=== PATIENT | female | born 1965 | race African-American/Black ===

== ENCOUNTER 2016-05-25 23:21 | Emergency (ER) | payer OTHER ==
[~2016-05-25] VITALS: Ht 165.1 cm; Wt 53.2 kg
[~2016-05-25 23:21] MED LIST: PROTONIX40 MG PO; SORE THROAT SP177 M1 MM; ZOFRAN4 MG PO
[2016-05-26 00:47] LABS: HEMATOCRIT 31.6 % (36.0-46.0); MCH 30.3 PG (29.0-34.0); MCHC 34.2 G/DL (30.0-36.0); MCV 88.5 FL (83-99); MEAN PLAT.VOLUME 9.6 uM^3 (9.5-12.4); PLATELET COUNT 228 K/uL (156-360); RBC DIS.WIDTH-CV 14.7 % (11.8-14.6); RBC DIS.WIDTH-SD 47.4 % (39-53); RED BLOOD COUNT 3.57 M/uL (3.80-5.20); WHITE BLOOD COUNT 4.3 K/uL (4.1-10.2)
[2016-05-26 00:55] LABS: CHLORIDE 109 mEq/L (99-109); POTASSIUM 3.2 mEq/L (3.7-5.4); SODIUM 145 mEq/L (136-147)
[2016-05-26 00:58] LABS: ANION GAP 11 MEQ/L (2-14)
[2016-05-26 01:00] LABS: GFR ESTIMATE (CALCULATED) > 59 mL/min/; SERUM ETHYL ALCOHOL 308 mg/dL
[2016-05-26 01:01] LABS: UREA NITROGEN (BUN) 10 mg/dL (9-23)
[2016-05-26 01:31] LABS: GLUCOSE 92 mg/dL (70-99)
[2016-05-26 05:49] LABS: BILIRUBIN NEGATIVE; BLOOD NEGATIVE; COLOR YELLOW ((YELLOW)); GLUCOSE (STRIP) NEGATIVE; KETONES NEGATIVE; LEUKOCYTES NEGATIVE; NITRITE NEGATIVE; PROTEIN (STRIP) 30; SPECIFIC GRAVITY 1.012 (1.000-1.030); UROBILINOGEN 0.2 MG/DL (0.2-1.0)
[2016-05-26 05:52] LABS: ADD MIUA? NO; UCUL ADDED? NO
[2016-05-26 05:58] LABS: AMPHETAMINE NEGATIVE (500 ng/mL); BARBITURATES NEGATIVE (200 ng/mL); BENZODIAZEPINES NEGATIVE (150 ng/mL); COCAINE NEGATIVE (150 ng/mL); INTERNAL CONTROLS VALID? YES; METHADONE NEGATIVE (200 ng/mL); METHAMPHETAMINE NEGATIVE (500 ng/mL); OPIATES (MORPHINE) NEGATIVE (100 ng/mL); OXYCODONE NEGATIVE (100 ng/mL); PHENCYCLIDINE NEGATIVE (25 ng/mL); PROPOXYPHENE NEGATIVE (300 ng/mL); THC CANNABINOIDS NEGATIVE (50 ng/mL); TRICYCLIC ANTIDEPRESSANTS NEGATIVE (300 ng/mL)
[2016-05-26 10:47] VITALS: BP 125/92
== END 2016-05-26 10:51 | disposition home or self-care (01) ==
LOC: EME → EDBD 23:21 → EME 23:21
PROVIDERS: Emergency Medicine
DX: F32.9 Major depressive disorder, single episode, unspecified (principal); R45.851 Suicidal ideations; F10.129 Alcohol abuse with intoxication, unspecified; S00.81XA Abrasion of other part of head, initial encounter; S00.31XA Abrasion of nose, initial encounter; X58.XXXA Exposure to other specified factors, initial encounter; E87.6 Hypokalemia; Y90.8 Blood alcohol level of 240 mg/100 ml or more
CPT/HCPCS: 70450; 80048; 81003; 85027; 90837; 99281; 99284; G0480

== ENCOUNTER 2016-08-01 04:56 | Emergency (ER) | payer OTHER ==
[~2016-08-01] VITALS: Ht 165.1 cm; Wt 51.8 kg
[2016-08-01 05:33] LABS: ADD MIUA? YES; BILIRUBIN SMALL; BLOOD SMALL; COLOR AMBER ((YELLOW)); GLUCOSE (STRIP) 50; KETONES 20; LEUKOCYTES NEGATIVE; NITRITE NEGATIVE; PROTEIN (STRIP) >=500; SPECIFIC GRAVITY 1.042 (1.000-1.030); UROBILINOGEN 0.2 MG/DL (0.2-1.0)
[2016-08-01 05:51] LABS: HEMATOCRIT 38.4 % (36.0-46.0); MCH 29.6 PG (29.0-34.0); MCHC 34.6 G/DL (30.0-36.0); MCV 85.5 FL (83-99); MEAN PLAT.VOLUME 10.3 uM^3 (9.5-12.4); PLATELET COUNT 162 K/uL (156-360); RBC DIS.WIDTH-CV 14.7 % (11.8-14.6); RBC DIS.WIDTH-SD 45.9 % (39-53); RED BLOOD COUNT 4.49 M/uL (3.80-5.20); WHITE BLOOD COUNT 9.2 K/uL (4.1-10.2)
[2016-08-01 05:52] LABS: CARBON DIOXIDE (BICARBONATE) 37.3 MEQ/L (20-31)
[2016-08-01 06:00] LABS: BACTERIA 3+ /HPF; CASTS NONE SEEN /LPF; CRYSTALS NONE SEEN; EPITHELIAL CELLS RARE /HPF; MUCUS RARE /LPF; RED BLOOD CELLS 0-5 /HPF (0-5); UCUL ADDED? YES
[2016-08-01 06:02] LABS: CHLORIDE 89 mEq/L (99-109); POTASSIUM 2.7 mEq/L (3.7-5.4); SODIUM 137 mEq/L (136-147)
[2016-08-01 06:05] LABS: GLUCOSE 109 mg/dL (70-99)
[2016-08-01 06:06] LABS: ANION GAP 19 MEQ/L (2-14); TOTAL BILIRUBIN 1.6 mg/dL (0.0-1.0)
[2016-08-01 06:08] LABS: ALKALINE PHOSPHATASE 89 IU/L (3-129); GFR ESTIMATE (CALCULATED) 56 mL/min/
[2016-08-01 06:09] LABS: UREA NITROGEN (BUN) 27 mg/dL (9-23)
[2016-08-01 06:12] LABS: CREATINE KINASE 119 IU/L (1-294); LIPASE 24 U/L (1.0-51.0)
[2016-08-01] MEDS ORDERED: ZOFRAN8 MG PO (07:09)
[2016-08-01] MEDS ORDERED: BENTYL20 MG PO (07:09)
[2016-08-01] MEDS ORDERED: LIBRIUM25 MG PO (07:09)
[2016-08-01 07:33] LABS: CARBON DIOXIDE (BICARBONATE) 33.4 MEQ/L (20-31)
[2016-08-01 07:47] LABS: CHLORIDE 94 mEq/L (99-109); SODIUM 135 mEq/L (136-147)
[2016-08-01 07:49] LABS: GLUCOSE 88 mg/dL (70-99)
[2016-08-01 07:50] LABS: ANION GAP 18 MEQ/L (2-14)
[2016-08-01 07:51] LABS: POTASSIUM 3.6 mEq/L (3.7-5.4)
[2016-08-01 07:53] LABS: GFR ESTIMATE (CALCULATED) > 59 mL/min/
[2016-08-01 07:54] LABS: UREA NITROGEN (BUN) 24 mg/dL (9-23)
[2016-08-01 08:39] VITALS: BP 141/102
[2016-08-01] MEDS ORDERED: COMPAZINE10 MG PO (08:39)
== END 2016-08-01 08:41 | disposition home or self-care (01) ==
LOC: EME 04:56
PROVIDERS: Emergency Medicine
DX: R11.2 Nausea with vomiting, unspecified (principal); E86.0 Dehydration; E87.6 Hypokalemia; F10.10 Alcohol abuse, uncomplicated; R10.10 Upper abdominal pain, unspecified; R19.7 Diarrhea, unspecified; R31.9 Hematuria, unspecified
CPT/HCPCS: 74177; 80048 91; 80053; 81003; 82550; 82803; 83690; 85027; 87086; 99281; 99285; J2405; J7030; S0028

== ENCOUNTER 2017-04-07 00:57 | Emergency (ER) | payer OTHER ==
[~2017-04-07] VITALS: Ht 165.1 cm; Wt 56.8 kg
[~2017-04-07 00:57] MED LIST changes: +BENTYL20 MG PO; +COMPAZINE10 MG PO; +LIBRIUM25 MG PO; +ZOFRAN8 MG PO
[2017-04-07 01:48] LABS: HEMATOCRIT 38.5 % (36.0-46.0); HEMOGLOBIN 13.8 G/DL (11.9-15.5); MCH 30.5 PG (29.0-34.0); MCHC 35.8 G/DL (30.0-36.0); MCV 85.2 FL (83-99); PLATELET COUNT 120 K/uL (156-360); RBC DIS.WIDTH-CV 14.2 % (11.8-14.6); RBC DIS.WIDTH-SD 44.1 % (39-53); RED BLOOD COUNT 4.52 M/uL (3.80-5.20); WHITE BLOOD COUNT 7.6 K/uL (4.1-10.2)
[2017-04-07 01:56] LABS: ALBUMIN 4.5 g/dL (3.2-4.8)
[2017-04-07 01:57] LABS: CHLORIDE 93 mEq/L (99-109); POTASSIUM 3.2 mEq/L (3.7-5.4); SODIUM 135 mEq/L (136-147)
[2017-04-07 01:59] LABS: GLUCOSE 114 mg/dL (70-99); TOTAL PROTEIN 10.1 g/dL (6.4-8.3)
[2017-04-07 02:02] LABS: ALKALINE PHOSPHATASE 104 IU/L (3-129)
[2017-04-07 02:03] LABS: GFR ESTIMATE (CALCULATED) > 59 mL/min/
[2017-04-07 02:04] LABS: AST (GOT) 251 IU/L (2-34); UREA NITROGEN (BUN) 29 mg/dL (9-23)
[2017-04-07 02:05] LABS: ALT (GPT) 185 IU/L (3-49)
[2017-04-07 02:06] LABS: LIPASE 27 U/L (1.0-51.0)
[2017-04-07] MEDS ORDERED: ZOFRAN ODT4 MG PO (02:13)
[2017-04-07 03:50] VITALS: BP 140/101
== END 2017-04-07 03:52 | disposition home or self-care (01) ==
LOC: EME 00:57
PROVIDERS: Emergency Medicine Emergency Medical Services
DX: K29.70 Gastritis, unspecified, without bleeding (principal); E86.0 Dehydration; F10.10 Alcohol abuse, uncomplicated; B19.20 Unspecified viral hepatitis C without hepatic coma
CPT/HCPCS: 80053; 83690; 85027; 99281; 99285; J0780; J7040

== ENCOUNTER 2017-08-03 04:00 | Inpatient (IN) | payer OTHER ==
[~2017-08-03] VITALS: Ht 165.1 cm; Wt 50.9 kg
[~2017-08-03 04:00] MED LIST changes: +ZOFRAN ODT4 MG PO
[2017-08-03 04:47] LABS: ALBUMIN 4.2 g/dL (3.2-4.8)
[2017-08-03 04:48] LABS: CHLORIDE 84 mEq/L (99-109); SODIUM 132 mEq/L (136-147)
[2017-08-03 04:50] LABS: GLUCOSE 108 mg/dL (70-99); TOTAL PROTEIN 9.6 g/dL (6.4-8.3)
[2017-08-03 04:53] LABS: ALKALINE PHOSPHATASE 94 IU/L (3-129); HEMATOCRIT 37.3 % (36.0-46.0); HEMOGLOBIN 13.5 G/DL (11.9-15.5); MCHC 36.2 G/DL (30.0-36.0); MCV 85.7 FL (83-99); NRBC (%) 0.3 /100 WBC (0-0); PLATELET COUNT 95 K/uL (156-360); RBC DIS.WIDTH-CV 14.2 % (11.8-14.6); RBC DIS.WIDTH-SD 44.6 % (39-53); RED BLOOD COUNT 4.35 M/uL (3.80-5.20); WHITE BLOOD COUNT 6.8 K/uL (4.1-10.2)
[2017-08-03 04:54] LABS: CREATININE 1.5 mg/dL (0.6-1.3); GFR ESTIMATE (CALCULATED) 47 mL/min/
[2017-08-03 04:55] LABS: AST (GOT) 112 IU/L (2-34); UREA NITROGEN (BUN) 48 mg/dL (9-23)
[2017-08-03 04:56] LABS: ALT (GPT) 76 IU/L (3-49)
[2017-08-03 04:57] LABS: LIPASE 85 U/L (1.0-51.0)
[2017-08-03 04:58] LABS: POTASSIUM 2.4 mEq/L (3.7-5.4)
[2017-08-03 06:18] LABS: PHOSPHORUS 4.4 mg/dL (2.5-4.9)
[2017-08-03 06:24] LABS: SERUM ETHYL ALCOHOL < 10 mg/dL
[2017-08-03 06:33] LABS: TROP-I INTERPRETATION NEGATIVE; TROPONIN-I < 0.01 ng/mL (0.0-0.30)
[2017-08-03 06:33] LABS: APPEARANCE SL.HAZY ((CLEAR)); BILIRUBIN NEGATIVE; BLOOD SMALL; COLOR AMBER ((YELLOW)); GLUCOSE (STRIP) NEGATIVE; KETONES 5; LEUKOCYTES SMALL; NITRITE NEGATIVE; PROTEIN (STRIP) 100; SPECIFIC GRAVITY 1.021 (1.000-1.030)
[2017-08-03 06:35] LABS: BACTERIA RARE /HPF; EPITHELIAL CELLS RARE /HPF; MUCUS NONE SEEN /LPF; RED BLOOD CELLS 0-5 /HPF (0-5); UCUL ADDED? YES
[2017-08-03 09:11] VITALS: BP 120/79
[2017-08-03 14:21] LABS: BENZODIAZEPINES, URINE SCREEN Negative (200 ng/mL)
[2017-08-03 15:10] LABS: CHLORIDE 95 MEQ/L (99-109); GLUCOSE 101 mg/dL (70-99); MAGNESIUM 2.6 mg/dl (1.3-2.7); SODIUM 131 MEQ/L (136-147); UREA NITROGEN (BUN) 30 mg/dL (9-23)
[2017-08-03 15:26] VITALS: BP 121/71
[2017-08-03 15:27] LABS: CREATININE 0.9 MG/DL (0.6-1.3); GFR ESTIMATE (CALCULATED) > 59 mL/min/; POTASSIUM 3.5 MEQ/L (3.7-5.4)
[2017-08-03 20:00] VITALS: BP 118/77
[2017-08-03 22:08] LABS: CHLORIDE 97 MEQ/L (99-109); CREATININE 0.7 MG/DL (0.6-1.3); GFR ESTIMATE (CALCULATED) > 59 mL/min/; GLUCOSE 98 mg/dL (70-99); POTASSIUM 3.3 MEQ/L (3.7-5.4); SODIUM 131 MEQ/L (136-147); UREA NITROGEN (BUN) 21 mg/dL (9-23)
[2017-08-04] VITALS (7 sets, daily range): BP systolic 110–153; BP diastolic 77–99
[2017-08-04 06:14] LABS: HEMATOCRIT 32.9 % (36.0-46.0); MCH 30.1 PG (29.0-34.0); MCV 88.4 FL (83-99); PLATELET COUNT 84 K/uL (156-360); RBC DIS.WIDTH-CV 13.8 % (11.8-14.6); RBC DIS.WIDTH-SD 44.7 % (39-53); RED BLOOD COUNT 3.72 M/uL (3.80-5.20); WHITE BLOOD COUNT 3.9 K/uL (4.1-10.2)
[2017-08-04 06:22] LABS: HEMOGLOBIN 11.2 G/DL (11.9-15.5)
[2017-08-04 06:28] LABS: ALBUMIN 3.4 G/DL (3.2-4.8); ALKALINE PHOSPHATASE 65 IU/L (3-129); ALT (GPT) 53 IU/L (3-49); AST (GOT) 74 IU/L (2-34); CHLORIDE 99 MEQ/L (99-109); CREATININE 0.7 MG/DL (0.6-1.3); DIRECT BILIRUBIN 0.6 mg/dL (0.0-0.3); GFR ESTIMATE (CALCULATED) > 59 mL/min/; GLUCOSE 95 mg/dL (70-99); PHOSPHORUS 2.1 mg/dL (2.5-4.9); POTASSIUM 3.4 MEQ/L (3.7-5.4); SODIUM 132 MEQ/L (136-147); TOTAL BILIRUBIN 1.6 MG/DL (0.0-1.0); TOTAL PROTEIN 7.2 G/DL (6.4-8.3); UREA NITROGEN (BUN) 15 mg/dL (9-23); URIC ACID 4.1 mg/dL (3.1-9.2)
[2017-08-04 06:36] LABS: MAGNESIUM 1.6 mg/dl (1.3-2.7)
[2017-08-04 09:09] LABS: FOLIC ACID (FOLATE) 14.5 NG/ML (5.0-22.0)
[2017-08-04 18:13] LABS: ALBUMIN 3.7 G/DL (3.2-4.8); CHLORIDE 98 MEQ/L (99-109); CREATININE 0.6 MG/DL (0.6-1.3); GFR ESTIMATE (CALCULATED) > 59 mL/min/; GLUCOSE 90 mg/dL (70-99); POTASSIUM 3.7 MEQ/L (3.7-5.4); SODIUM 131 MEQ/L (136-147); UREA NITROGEN (BUN) 9 mg/dL (9-23)
[2017-08-04 18:14] LABS: MAGNESIUM 2.1 mg/dl (1.3-2.7); PHOSPHORUS 2.9 mg/dL (2.5-4.9)
[2017-08-05 00:34] VITALS: BP 135/99
[2017-08-05 03:56] VITALS: BP 123/73
[2017-08-05 06:52] LABS: HEMATOCRIT 29.8 % (36.0-46.0); HEMOGLOBIN 10.6 G/DL (11.9-15.5); MCH 31.1 PG (29.0-34.0); MCHC 35.6 G/DL (30.0-36.0); MCV 87.4 FL (83-99); PLATELET COUNT 90 K/uL (156-360); RBC DIS.WIDTH-CV 13.5 % (11.8-14.6); RBC DIS.WIDTH-SD 43.4 % (39-53); RED BLOOD COUNT 3.41 M/uL (3.80-5.20)
[2017-08-05 07:16] LABS: ALBUMIN 3.3 G/DL (3.2-4.8); CHLORIDE 100 MEQ/L (99-109); CREATININE 0.6 MG/DL (0.6-1.3); GFR ESTIMATE (CALCULATED) > 59 mL/min/; GLUCOSE 103 mg/dL (70-99); PHOSPHORUS 2.9 mg/dL (2.5-4.9); POTASSIUM 3.4 MEQ/L (3.7-5.4); SODIUM 134 MEQ/L (136-147); UREA NITROGEN (BUN) 6 mg/dL (9-23)
[2017-08-05 07:17] LABS: MAGNESIUM 1.4 mg/dl (1.3-2.7)
[2017-08-05 07:29] VITALS: BP 137/87
[2017-08-05] MEDS ORDERED: POTASSIUM CHLO20 ME1 PO (09:32)
[2017-08-05 11:23] VITALS: BP 159/80
== END 2017-08-05 14:27 | disposition home or self-care (01) | DRG 683 ==
LOC: EME 04:00 → EDOF 07:15 → ENRESERV 07:45 → 5SOUTH 08:56
PROVIDERS: Emergency Medicine; Hospitalist; Internal Medicine Nephrology; Physician Assistant Medical
DX: N17.9 Acute kidney failure, unspecified (principal); E46 Unspecified protein-calorie malnutrition; E87.1 Hypo-osmolality and hyponatremia; E83.42 Hypomagnesemia; E87.8 Other disorders of electrolyte and fluid balance, not elsewhere classified; E83.39 Other disorders of phosphorus metabolism; D61.818 Other pancytopenia; F10.239 Alcohol dependence with withdrawal, unspecified; Y90.0 Blood alcohol level of less than 20 mg/100 ml; E86.0 Dehydration; E87.6 Hypokalemia; F32.9 Major depressive disorder, single episode, unspecified; B19.20 Unspecified viral hepatitis C without hepatic coma; Z68.1 Body mass index [BMI] 19.9 or less, adult; Z87.891 Personal history of nicotine dependence
CPT/HCPCS: 74176; 80048 91; 80053; 80069; 80076; 80306 90; 81003; 82306; 82607; 82746; 83605; 83690; 83735; 84100; 84484; 84550; 85027; 87086; 93005; 99281; 99285; G0480; J1644; J2405; J3475; J3480; J7030; J7050